=== PATIENT | female | born 1970 | race Hispanic/Latino ===

== ENCOUNTER 2017-09-21 18:44 | Emergency (ER) | payer OTHER ==
[~2017-09-21] VITALS: Ht 149.9 cm; Wt 76.2 kg
[2017-09-21 20:06] LABS: STREPTOCOCCUS GRP A ANTIGEN NEGATIVE (NEGATIVE)
[2017-09-21 20:23] LABS: INFLUENZAE A&B ANTIGEN (RAPID) NEGATIVE (NEGATIVE)
--- NOTE | 2017-09-21 21:17 | Diagnostic Imaging Report ---
CHEST 2 VIEWS, Technique: CHEST 2 VIEWS Comparison: 04/08/2017 Clinical history: Cough, congestion DISCUSSION: Unremarkable appearance of the heart, mediastinum, lungs and pleural spaces. IMPRESSION: No acute abnormality Signed by: Dr Vani Milian MD on 09/21/2017 9:13 PM
[2017-09-21 21:51] VITALS: BP 145/62
== END 2017-09-21 21:53 | disposition home or self-care (01) ==
LOC: ER 18:44
DX: R05 Cough (principal); J20.9 Acute bronchitis, unspecified; J45.909 Unspecified asthma, uncomplicated
CPT/HCPCS: 71020; 83518; 87070; 87400; 93005; 99283